=== PATIENT | female | born 1970 | race Caucasian/White ===

== ENCOUNTER → 2019-05-20 | Outpatient (CLI) | payer BC ==
--- NOTE | 2019-05-20 09:36 | USB ---
Reason for exam: clinical finding. History: Patient had first child at age 33. Family history of breast cancer in cousin. Physical Findings: Nurse did not find any significant physical abnormalities on exam. US Breast LT Prior study comparison: January 30, 2019, mammogram. April 10, 2016, mammogram. April 06, 2015, mammogram. Left complete breast ultrasound includes all four quadrants, the retroareolar region and axilla. Finding demonstrates no cystic or solid lesion seen. Clinically patient reports resolution of palpable. These results were verbally communicated with the patient and result sheet given to the patient on 05/20/19. ASSESSMENT: Negative, BI-RAD 1 RECOMMENDATION: Routine screening mammogram of both breasts in 8 months. Back on schedule for January 2020.
== END | disposition home or self-care (01) ==
LOC: RADUSWWP 08:31
PROVIDERS: ATTEND Obstetrics & Gynecology
DX: N63.20 Unspecified lump in the left breast, unspecified quadrant (principal)